=== PATIENT | female | born 1990 | race Caucasian/White ===

== ENCOUNTER 2017-05-07 02:16 | Emergency (ER) | payer BC ==
[~2017-05-07] VITALS: Ht 154.9 cm; Wt 50.8 kg
[~2017-05-07 02:16] MED LIST: JUNEL FE 1/21 TABLET PO; PROZAC20 MG PO; VENLAFAXINE HCL75 M3 PO
[2017-05-07 03:37] LABS: HEMATOCRIT 39.1 % (36.0-46.0); MCH 29.3 PG (29.0-34.0); MCV 88.9 FL (83-99); MEAN PLAT.VOLUME 9.6 uM^3 (9.5-12.4); PLATELET COUNT 308 K/uL (156-360); RBC DIS.WIDTH-CV 13.1 % (11.8-14.6); RBC DIS.WIDTH-SD 43.3 % (39-53); WHITE BLOOD COUNT 11.5 K/uL (4.1-10.2)
[2017-05-07 03:48] LABS: CHLORIDE 107 mEq/L (99-109); POTASSIUM 4.9 mEq/L (3.7-5.4); SODIUM 139 mEq/L (136-147)
[2017-05-07 03:49] LABS: D-DIMER ELISA 0.24 mg/L FEU (< 0.57)
[2017-05-07 03:50] LABS: GLUCOSE 110 mg/dL (70-99)
[2017-05-07 03:51] LABS: ANION GAP 7 MEQ/L (2-14)
[2017-05-07 03:54] LABS: GFR ESTIMATE (CALCULATED) > 59 mL/min/
[2017-05-07 03:55] LABS: UREA NITROGEN (BUN) 11 mg/dL (9-23)
[2017-05-07 04:02] LABS: TROP-I INTERPRETATION NEGATIVE; TROPONIN-I < 0.01 ng/mL (0.0-0.30)
[2017-05-07 04:22] VITALS: BP 120/80
== END 2017-05-07 04:24 | disposition home or self-care (01) ==
LOC: EME 02:16
PROVIDERS: Emergency Medicine
DX: R07.9 Chest pain, unspecified (principal); F41.1 Generalized anxiety disorder; R04.0 Epistaxis; R51 Headache; R00.0 Tachycardia, unspecified
CPT/HCPCS: 71020; 80048; 84484; 85027; 85379; 93005; 99281; 99284; J1885; J7030

== ENCOUNTER 2018-02-10 05:14 | Emergency (ER) | payer BC ==
[~2018-02-10] VITALS: Ht 154.9 cm; Wt 49.1 kg
[2018-02-10 07:02] LABS: BASOPHIL (%) 0.4 % (0-1); BASOPHIL COUNT 0.1 K/uL (0-0.1); EOSINOPHIL (%) 0.2 % (0-5); HEMATOCRIT 39.1 % (36.0-46.0); HEMOGLOBIN 13.3 G/DL (11.9-15.5); IMMATURE GRANULOCYTE (%) 0.5 % (0.0-0.7); LYMPHOCYTE (%) 5.3 % (15-42); MCH 29.4 PG (29.0-34.0); MCV 86.5 FL (83-99); MONOCYTE COUNT 1.2 K/uL (0-0.8); NEUTROPHIL (%) 87.6 % (45-76); NEUTROPHIL COUNT 16.8 K/uL (1.8-6.4); PLATELET COUNT 402 K/uL (156-360); RBC DIS.WIDTH-CV 13.3 % (11.8-14.6); RBC DIS.WIDTH-SD 41.6 % (39-53); RED BLOOD COUNT 4.52 M/uL (3.80-5.20); WHITE BLOOD COUNT 19.1 K/uL (4.1-10.2)
[2018-02-10 07:13] LABS: INTER. NORMALIZED RATIO 1.2
[2018-02-10 07:15] LABS: D-DIMER ELISA < 150.00 ng/mLDDU (<230); PTT 27.5 SEC (25-37)
[2018-02-10 07:27] LABS: TROP-I INTERPRETATION NEGATIVE; TROPONIN-I < 0.01 ng/mL (0.0-0.30)
[2018-02-10 07:39] LABS: CHLORIDE 104 MEQ/L (99-109); CREATININE 0.7 MG/DL (0.6-1.3); GFR ESTIMATE (CALCULATED) > 59 mL/min/; GLUCOSE 91 mg/dL (70-99); SODIUM 139 MEQ/L (136-147); UREA NITROGEN (BUN) 9 mg/dL (9-23)
[2018-02-10 08:15] LABS: APPEARANCE SL.HAZY ((CLEAR)); BILIRUBIN NEGATIVE; BLOOD NEGATIVE; COLOR YELLOW ((YELLOW)); GLUCOSE (STRIP) NEGATIVE; KETONES 5; LEUKOCYTES NEGATIVE; NITRITE NEGATIVE; PROTEIN (STRIP) NEGATIVE; SPECIFIC GRAVITY 1.012 (1.000-1.030)
[2018-02-10 08:26] LABS: BACTERIA NONE SEEN /HPF; EPITHELIAL CELLS 1+ /HPF; MUCUS 2+ /LPF; RED BLOOD CELLS 0-5 /HPF (0-5); UCUL ADDED? NO; WHITE BLOOD CELLS 0-5 /HPF (0-5)
[2018-02-10 09:32] LABS: TROP-I INTERPRETATION NEGATIVE; TROPONIN-I < 0.01 ng/mL (0.0-0.30)
[2018-02-10 11:04] VITALS: BP 122/78
== END 2018-02-10 11:05 | disposition home or self-care (01) ==
LOC: EME 05:14
PROVIDERS: Emergency Medicine
DX: F41.9 Anxiety disorder, unspecified (principal); R07.89 Other chest pain; D72.829 Elevated white blood cell count, unspecified; R00.0 Tachycardia, unspecified; R94.31 Abnormal electrocardiogram [ECG] [EKG]; F32.9 Major depressive disorder, single episode, unspecified; F41.0 Panic disorder [episodic paroxysmal anxiety]; F31.9 Bipolar disorder, unspecified; F60.9 Personality disorder, unspecified
CPT/HCPCS: 71045; 80048; 81003; 84484; 85025; 85379; 85610; 85730; 93005; 99281; 99285

== ENCOUNTER 2018-03-30 19:03 | Emergency (ER) | payer BC ==
[~2018-03-30] VITALS: Ht 154.9 cm; Wt 50.4 kg
[2018-03-30 21:02] LABS: HEMATOCRIT 37.3 % (36.0-46.0); HEMOGLOBIN 12.6 G/DL (11.9-15.5); MCH 29.6 PG (29.0-34.0); MCHC 33.8 G/DL (30.0-36.0); MCV 87.6 FL (83-99); PLATELET COUNT 347 K/uL (156-360); RBC DIS.WIDTH-CV 13.4 % (11.8-14.6); RBC DIS.WIDTH-SD 43.4 % (39-53); RED BLOOD COUNT 4.26 M/uL (3.80-5.20); WHITE BLOOD COUNT 8.9 K/uL (4.1-10.2)
[2018-03-30 21:14] LABS: CHLORIDE 105 mEq/L (99-109); POTASSIUM 3.7 mEq/L (3.7-5.4); SODIUM 140 mEq/L (136-147)
[2018-03-30 21:16] LABS: GLUCOSE 85 mg/dL (70-99)
[2018-03-30 21:20] LABS: CREATININE 0.7 mg/dL (0.6-1.3); GFR ESTIMATE (CALCULATED) > 59 mL/min/
[2018-03-30 21:21] LABS: UREA NITROGEN (BUN) 14 mg/dL (9-23)
[2018-03-30 21:29] LABS: QUANTITATIVE HCG < 4.0 MIU/ML
[2018-03-30] MEDS ORDERED: ATARAX,VISTARIL50 MG PO (22:07)
[2018-03-31 00:18] VITALS: BP 91/53
== END 2018-03-31 00:18 | disposition home or self-care (01) ==
LOC: EME 19:03
PROVIDERS: Nurse Practitioner Family
DX: F41.9 Anxiety disorder, unspecified (principal); R20.2 Paresthesia of skin; R51 Headache; F32.9 Major depressive disorder, single episode, unspecified
CPT/HCPCS: 70450; 80048; 84702; 85027; 99281; 99284

== ENCOUNTER 2018-04-04 21:51 | Emergency (ER) | payer BC ==
[~2018-04-04] VITALS: Ht 165.1 cm; Wt 50.0 kg
[~2018-04-04 21:51] MED LIST changes: +ATARAX,VISTARIL50 MG PO
[2018-04-04 21:53] VITALS: BP 128/86
[2018-04-04 22:35] LABS: HEMOGLOBIN 13.1 G/DL (11.9-15.5); MCHC 34.5 G/DL (30.0-36.0); MCV 87.2 FL (83-99); PLATELET COUNT 312 K/uL (156-360); RBC DIS.WIDTH-CV 13.2 % (11.8-14.6); RBC DIS.WIDTH-SD 41.7 % (39-53); RED BLOOD COUNT 4.36 M/uL (3.80-5.20); WHITE BLOOD COUNT 8.2 K/uL (4.1-10.2)
[2018-04-04 22:47] LABS: D-DIMER ELISA < 150.00 ng/mLDDU (<230)
[2018-04-04 22:53] LABS: ALBUMIN 4.3 g/dL (3.2-4.8); CHLORIDE 105 mEq/L (99-109); POTASSIUM 3.5 mEq/L (3.7-5.4); SODIUM 140 mEq/L (136-147)
[2018-04-04 22:55] LABS: GLUCOSE 104 mg/dL (70-99)
[2018-04-04 22:56] LABS: TOTAL PROTEIN 6.4 g/dL (6.4-8.3)
[2018-04-04 22:59] LABS: ALKALINE PHOSPHATASE 72 IU/L (3-129); CREATININE 0.7 mg/dL (0.6-1.3); GFR ESTIMATE (CALCULATED) > 59 mL/min/
[2018-04-04 23:00] LABS: UREA NITROGEN (BUN) 14 mg/dL (9-23)
[2018-04-04 23:01] LABS: AST (GOT) 13 IU/L (2-34)
[2018-04-04 23:02] LABS: ALT (GPT) 5 IU/L (3-49)
[2018-04-04 23:04] LABS: TROP-I INTERPRETATION NEGATIVE; TROPONIN-I < 0.01 ng/mL (0.0-0.30)
[2018-04-04 23:25] LABS: APPEARANCE CLEAR ((CLEAR)); BILIRUBIN NEGATIVE; BLOOD NEGATIVE; COLOR YELLOW ((YELLOW)); GLUCOSE (STRIP) NEGATIVE; KETONES NEGATIVE; LEUKOCYTES NEGATIVE; NITRITE NEGATIVE; PROTEIN (STRIP) NEGATIVE; SPECIFIC GRAVITY 1.014 (1.000-1.030); UCUL ADDED? NO; UROBILINOGEN 0.2 MG/DL (0.2-1.0)
[2018-04-04 23:53] LABS: AMPHETAMINE NEGATIVE (500 ng/mL); BARBITURATES NEGATIVE (200 ng/mL); BENZODIAZEPINES PRESUMPTIVE POSITIVE (150 ng/mL); BUPRENORPHINE NEGATIVE (10 ng/mL); COCAINE PRESUMPTIVE POSITIVE (150 ng/mL); METHADONE NEGATIVE (200 ng/mL); METHAMPHETAMINE NEGATIVE (500 ng/mL); OPIATES (MORPHINE) NEGATIVE (100 ng/mL); OXYCODONE NEGATIVE (100 ng/mL); PHENCYCLIDINE NEGATIVE (25 ng/mL); PROPOXYPHENE NEGATIVE (300 ng/mL); THC CANNABINOIDS NEGATIVE (50 ng/mL); TRICYCLIC ANTIDEPRESSANTS NEGATIVE (300 ng/mL)
[2018-04-05 01:32] LABS: BENZODIAZEPINES, URINE SCREEN Negative (200 ng/mL)
== END 2018-04-05 00:30 | disposition left against medical advice (07) ==
LOC: EME 21:51
PROVIDERS: Nurse Practitioner Family
DX: F43.9 Reaction to severe stress, unspecified (principal); R00.0 Tachycardia, unspecified; I49.3 Ventricular premature depolarization; F41.9 Anxiety disorder, unspecified
CPT/HCPCS: 71046; 80053; 81003; 84484; 84999; 85027; 85379; 93005; 99281; 99284

== ENCOUNTER 2018-04-08 02:45 | Emergency (ER) | payer BC ==
[~2018-04-08] VITALS: Ht 154.9 cm; Wt 49.6 kg
[2018-04-08 03:07] LABS: HEMATOCRIT 40.8 % (36.0-46.0); HEMOGLOBIN 13.9 G/DL (11.9-15.5); MCH 29.5 PG (29.0-34.0); MCHC 34.1 G/DL (30.0-36.0); MCV 86.6 FL (83-99); PLATELET COUNT 334 K/uL (156-360); RBC DIS.WIDTH-CV 13.2 % (11.8-14.6); RBC DIS.WIDTH-SD 41.1 % (39-53); RED BLOOD COUNT 4.71 M/uL (3.80-5.20)
[2018-04-08 03:18] LABS: CHLORIDE 106 mEq/L (99-109); SODIUM 139 mEq/L (136-147)
[2018-04-08 03:20] LABS: GLUCOSE 101 mg/dL (70-99)
[2018-04-08 03:24] LABS: CREATININE 0.8 mg/dL (0.6-1.3); GFR ESTIMATE (CALCULATED) > 59 mL/min/
[2018-04-08 03:25] LABS: UREA NITROGEN (BUN) 11 mg/dL (9-23)
[2018-04-08 03:31] LABS: TROP-I INTERPRETATION NEGATIVE; TROPONIN-I < 0.01 ng/mL (0.0-0.30)
[2018-04-08 04:57] LABS: QUANTITATIVE HCG < 4.0 MIU/ML
[2018-04-08 05:54] LABS: TROP-I INTERPRETATION NEGATIVE; TROPONIN-I < 0.01 ng/mL (0.0-0.30)
[2018-04-08 06:11] VITALS: BP 101/68
== END 2018-04-08 06:11 | disposition home or self-care (01) ==
LOC: EME 02:45
PROVIDERS: Emergency Medicine
DX: R07.89 Other chest pain (principal); R00.2 Palpitations; R20.2 Paresthesia of skin; F32.9 Major depressive disorder, single episode, unspecified; F31.9 Bipolar disorder, unspecified
CPT/HCPCS: 71046; 80048; 84484; 84702; 85027; 93005; 99281; 99284

== ENCOUNTER 2018-04-13 01:04 | Emergency (ER) | payer BC ==
[~2018-04-13] VITALS: Ht 154.9 cm; Wt 49.3 kg
[2018-04-13 01:43] LABS: TROP-I INTERPRETATION NEGATIVE; TROPONIN-I 0.01 ng/mL (0.0-0.30)
[2018-04-13 02:06] LABS: CHLORIDE 109 mEq/L (99-109); POTASSIUM 3.7 mEq/L (3.7-5.4); SODIUM 140 mEq/L (136-147)
[2018-04-13 02:08] LABS: GLUCOSE 101 mg/dL (70-99)
[2018-04-13 02:12] LABS: CREATININE 0.8 mg/dL (0.6-1.3); GFR ESTIMATE (CALCULATED) > 59 mL/min/; UREA NITROGEN (BUN) 16 mg/dL (9-23)
[2018-04-13 04:08] VITALS: BP 111/74
== END 2018-04-13 04:10 | disposition home or self-care (01) ==
LOC: EME → EDBD 01:04 → EME 04:10
PROVIDERS: Emergency Medicine
DX: R07.9 Chest pain, unspecified (principal); F41.9 Anxiety disorder, unspecified; F17.200 Nicotine dependence, unspecified, uncomplicated
CPT/HCPCS: 71275; 80048; 84484; 93005; 99281; 99284; J7030

== ENCOUNTER 2018-04-16 01:04 | Emergency (ER) | payer BC ==
[~2018-04-16] VITALS: Ht 154.9 cm; Wt 49.1 kg
[2018-04-16 01:08] VITALS: BP 112/77
[2018-04-16 01:29] LABS: HEMATOCRIT 39.5 % (36.0-46.0); HEMOGLOBIN 13.7 G/DL (11.9-15.5); MCH 29.7 PG (29.0-34.0); MCHC 34.7 G/DL (30.0-36.0); MCV 85.7 FL (83-99); PLATELET COUNT 329 K/uL (156-360); RBC DIS.WIDTH-CV 13.2 % (11.8-14.6); RED BLOOD COUNT 4.61 M/uL (3.80-5.20)
[2018-04-16 01:38] LABS: CHLORIDE 106 mEq/L (99-109); POTASSIUM 3.7 mEq/L (3.7-5.4); SODIUM 139 mEq/L (136-147)
[2018-04-16 01:40] LABS: GLUCOSE 90 mg/dL (70-99)
[2018-04-16 01:44] LABS: CREATININE 0.8 mg/dL (0.6-1.3); GFR ESTIMATE (CALCULATED) > 59 mL/min/
[2018-04-16 01:45] LABS: UREA NITROGEN (BUN) 11 mg/dL (9-23)
[2018-04-16 01:52] LABS: TROP-I INTERPRETATION NEGATIVE; TROPONIN-I < 0.01 ng/mL (0.0-0.30)
== END 2018-04-16 02:37 | disposition left against medical advice (07) ==
LOC: EME 01:04
DX: R07.9 Chest pain, unspecified (principal); Z53.21 Procedure and treatment not carried out due to patient leaving prior to being seen by health care provider
CPT/HCPCS: 71046; 80048; 84484; 85027; 93005